=== PATIENT | female | born 2000 | race Caucasian/White ===

== ENCOUNTER 2018-04-10 09:02 | Emergency (ER) | payer OTHER ==
[~2018-04-10] VITALS: Ht 165.1 cm; Wt 72.3 kg
[2018-04-10] MEDS ORDERED: IBUP-2070 PO (09:11)
[2018-04-10] MEDS ORDERED: CIPR-278 PO (09:11)
[2018-04-10] MEDS ORDERED: CefTRIAXone SODIUM 1 GM/VIAL IV ONE (10:00)
[2018-04-10] MEDS ORDERED: KETOROLAC TROMETHAMINE 30 MG/ML VIAL IVP ONE (10:00)
[2018-04-10] MEDS ORDERED: ONDANSETRON HCL 4 MG/2 ML VIAL IVP ONE (10:00)
[2018-04-10] MEDS ORDERED: SODIUM CHLORIDE 0.9% 1,000 ML IV ONE (10:00)
[2018-04-10 10:18] LABS: BASOPHILS % (AUTO) 0.1 % (0.0-2.0); EOSINOPHILS % (AUTO) 0.3 % (1.0-6.0); HEMATOCRIT 28.8 % (36-46); HEMOGLOBIN 8.8 g/dL (12.0-16.0); LYMPHOCYTES % (AUTO) 7.6 % (22.0-44.0); MEAN CORPUSCULAR HEMOGLOBIN 21.5 pg (26.0-34.0); MEAN CORPUSCULAR HGB CONC 30.6 G/dL (31.0-37.0); MEAN CORPUSCULAR VOLUME 70 fL (80-100); MONOCYTES # (AUTO) 1.7 K/uL (0.1-1.0); MONOCYTES % (AUTO) 12.3 % (2.0-9.0); NEUTROPHILS # (AUTO) 10.9 K/uL (1.8-7.7); NEUTROPHILS % (AUTO) 79.7 % (40.0-70.0); PLATELET COUNT (AUTO) 276 K/uL (150-450); RED CELL DISTRIBUTION WIDTH 16.8 % (11.5-14.5)
[2018-04-10 10:33] LABS: ALANINE AMINOTRANSFERASE 38 U/L (12-78); ALBUMIN 3.2 g/dL (3.4-5.0); ALKALINE PHOSPHATASE 109 U/L (46-116); ANION GAP 9 mmol/L (8-16); ASPARTATE AMINOTRANSFERASE 43 U/L (15-37); BILIRUBIN,TOTAL 0.3 mg/dL (0.1-1.0); CALCIUM, TOTAL 8.4 mg/dL (8.8-10.5); CARBON DIOXIDE 27 mmol/L (22-29); CHLORIDE 98 mmol/L (98-107); GLOMERULAR FILTR. RATE CALC > 60 mL/min (>60); GLUCOSE,RANDOM 109 mg/dL (70-110); SODIUM SERUM 134 mmol/L (136-145); TOTAL PROTEIN, SERUM 8.3 g/dL (6.4-8.2); UREA NITROGEN, BLOOD 6 mg/dL (7-18)
[2018-04-10 10:36] LABS: POTASSIUM 2.9 mmol/L (3.5-5.1)
[2018-04-10] MEDS ORDERED: POTASSIUM CHLORIDE 20 MEQ ER TABLET PO ONE (13:00)
[2018-04-10 14:01] LABS: APPEARANCE,URINE CLOUDY (CLEAR); BILIRUBIN,URINE NEGATIVE (NEGATIVE); GLUCOSE, URINE (UA) NEGATIVE (NEGATIVE); KETONES,URINE NEGATIVE (NEGATIVE); LEUKOCYTE ESTERASE ,URINE SMALL (NEGATIVE); NITRATE,URINE NEGATIVE (NEGATIVE); OCCULT BLOOD,URINE NEGATIVE (NEGATIVE); PROTEIN,URINE TRACE (NEGATIVE)
[2018-04-10 14:06] LABS: BACTERIA,URINE Few /HPF (None Seen); RBC,URINE None Seen /HPF (0-2); SQUAMOUS EPITHELIAL CELL,UR Many /LPF (None Seen)
[2018-04-10 14:41] VITALS: BP 120/66
== END 2018-04-10 15:43 | disposition home or self-care (01) ==
LOC: EMS 09:04
DX: N39.0 Urinary tract infection, site not specified (principal)
CPT/HCPCS: 36415; 74176; 76770; 80053; 81001; 84703; 85025; 87086; 87491; 87591; 93005; 96374; 96375; 99285; J0696; J1885; J2405; J7030

== ENCOUNTER 2019-05-02 16:05 | Emergency (ER) | payer OTHER ==
[~2019-05-02] VITALS: Ht 167.6 cm; Wt 66.8 kg
[~2019-05-02 16:05] MED LIST: CIPR-278 PO; IBUP-2070 PO
[2019-05-02] MEDS ORDERED: ALPR1TAB7 PO (16:23)
[2019-05-02] MEDS ORDERED: SERT50TA12 PO (16:23)
[2019-05-02 17:19] LABS: APPEARANCE,URINE CLEAR (CLEAR); BILIRUBIN,URINE NEGATIVE (NEGATIVE); GLUCOSE, URINE (UA) NEGATIVE (NEGATIVE); KETONES,URINE NEGATIVE (NEGATIVE); LEUKOCYTE ESTERASE ,URINE TRACE (NEGATIVE); NITRATE,URINE NEGATIVE (NEGATIVE); OCCULT BLOOD,URINE NEGATIVE (NEGATIVE); PH,URINE 6.5 (5.0-8.0); PROTEIN,URINE NEGATIVE (NEGATIVE); UROBILINOGEN,URINE 0.2 mg/dL (<=1.0)
[2019-05-02 17:22] LABS: AMPHET/METH SCREEN,URINE NEGATIVE (NEGATIVE); BARBITURATE SCREEN, URINE NEGATIVE (NEGATIVE); BENZODIAZEPINES SCREEN,URINE NEGATIVE (NEGATIVE); CANNABINOID SCREEN,URINE NEGATIVE (NEGATIVE); COCAINE SCREEN,URINE NEGATIVE (NEGATIVE); METHADONE SCREEN, URINE NEGATIVE (NEGATIVE); OPIATE SCREEN,URINE NEGATIVE (NEGATIVE); PHENCYCLIDINE SCREEN,URINE NEGATIVE (NEGATIVE)
[2019-05-02 17:26] LABS: RBC,URINE None Seen /HPF (0-2); SQUAMOUS EPITHELIAL CELL,UR Few /LPF (None Seen)
[2019-05-02 17:27] LABS: BACTERIA,URINE Few /HPF (None Seen)
[2019-05-02] MEDS ORDERED: LORazepam 1 MG TABLET PO ONE (19:45)
[2019-05-02 20:20] VITALS: BP 130/71
== END 2019-05-02 20:58 | disposition home or self-care (01) ==
LOC: EMS 16:05
DX: F13.239 Sedative, hypnotic or anxiolytic dependence with withdrawal, unspecified (principal); F41.9 Anxiety disorder, unspecified; F32.9 Major depressive disorder, single episode, unspecified; R42 Dizziness and giddiness; Z79.899 Other long term (current) drug therapy
CPT/HCPCS: 87086; 93005

== ENCOUNTER 2020-02-18 20:22 | Emergency (ER) | payer OTHER ==
[~2020-02-18] VITALS: Ht 167.6 cm; Wt 81.8 kg
[~2020-02-18 20:22] MED LIST changes: +ALPR1TAB7 PO; -CIPR-278 PO; -IBUP-2070 PO; +SERT50TA12 PO
[2020-02-18 20:23] VITALS: BP 147/83
== END 2020-02-18 21:19 | disposition home or self-care (01) ==
LOC: EMS 20:22
DX: S09.90XA Unspecified injury of head, initial encounter (principal); M54.2 Cervicalgia; F41.9 Anxiety disorder, unspecified; F32.9 Major depressive disorder, single episode, unspecified; F13.10 Sedative, hypnotic or anxiolytic abuse, uncomplicated; W01.0XXA Fall on same level from slipping, tripping and stumbling without subsequent striking against object, initial encounter; Y93.89 Activity, other specified; Y92.89 Other specified places as the place of occurrence of the external cause; Y99.8 Other external cause status

== ENCOUNTER 2020-10-27 20:45 | Emergency (ER) | payer BC, MEDICAID, OTHER ==
[~2020-10-27] VITALS: Ht 167.6 cm; Wt 77.3 kg
[~2020-10-27 20:45] MED LIST changes: -ALPR1TAB7 PO
[2020-10-27] MEDS ORDERED: BACITRACIN 0.9 GM PACKET OINTMENT TP ONE (23:45)
[2020-10-28 00:29] VITALS: BP 121/76
== END 2020-10-28 01:02 | disposition home or self-care (01) ==
LOC: EMS 20:45
DX: S61.511A Laceration without foreign body of right wrist, initial encounter (principal); F41.9 Anxiety disorder, unspecified; F32.9 Major depressive disorder, single episode, unspecified; W54.0XXA Bitten by dog, initial encounter; Y93.89 Activity, other specified; Y92.89 Other specified places as the place of occurrence of the external cause; Y99.8 Other external cause status

== ENCOUNTER 2021-04-28 20:15 | Emergency (ER) | payer MEDICAID, OTHER ==
[~2021-04-28] VITALS: Ht 170.2 cm; Wt 72.7 kg
[~2021-04-28 20:15] MED LIST changes: +SERT-158 PO; -SERT50TA12 PO
[2021-04-28 20:28] VITALS: BP 142/87
[2021-04-28] MEDS ORDERED: BUSP5TAB20 PO (22:07)
== END 2021-04-28 23:05 | disposition left against medical advice (07) ==
LOC: EMS 20:18
DX: F29 Unspecified psychosis not due to a substance or known physiological condition (principal); Z53.21 Procedure and treatment not carried out due to patient leaving prior to being seen by health care provider